=== PATIENT | female | born 1940 | race Caucasian/White ===

== ENCOUNTER → 2022-11-04 09:58 | Outpatient (REF) | payer MEDICARE, SELFPAY ==
--- NOTE | 2022-11-04 10:02 | CA_ITS ---
Transthoracic Echocardiogram Patient (Last, First, Middle): Eliza Guevara, Gender: Female Date of : 1940 Age: 81 Procedure Date: 11/04/2022 Procedure Type: Transthoracic Echocardiogram Location: [facility] Height: 165.1 cm Weight: 58.97 kg BSA: 1.65 m2 Heart Rate: bpm BP: 148 / 88 mmHg Expanding Machine Operator: MARISOL Referring MD: Ivis Carney MD Symptoms: Shortness of breath Study Quality: Adequate ECG Rhythm: Sinus Conclusions: - The left ventricular systolic function is normal. The visually estimated ejection fraction is between 65-70%. - There is mild aortic valve regurgitation. - There is mild mitral annular calcification. Findings Left Ventricle Normal left ventricular cavity size. There is normal left ventricular wall thickness. The left ventricular systolic function is normal. The visually estimated ejection fraction is between 65-70%. There is no evidence of regional wall motion abnormalities. Evidence suggests grade I (mild) diastolic dysfunction. LV peak GLS -16%. Right Ventricle Normal right ventricular cavity size and systolic function. Atria Both atria are normal in size. Aortic Valve There is a normal trileaflet aortic valve. There is no aortic valve stenosis. There is mild aortic valve regurgitation. Mitral Valve The mitral valve appears normal. There is mild mitral annular calcification. There is trace mitral valve regurgitation. There is no mitral valve stenosis. Pulmonic Valve The pulmonic valve is likely normal. Tricuspid Valve There is mild tricuspid valve regurgitation. There is no evidence of pulmonary hypertension. Great Vessels The asc aorta is normal in size. Venous The inferior vena cava is normal in size and collapses greater than 50% with inspiration. Pericardium/Pleural There is no evidence of pericardial effusion. Prior Study Comparison No significant change compared to prior study dated: 07/09/2014. Measurements 2D Linear Measurements IVSd: 0.78 0.6-0.9/0.6-1.0 cm LVIDd: 3.68 3.9-5.3/4.2-5.9 cm LVIDd Index: 2.23 2.4-3.2/2.2-3.1 cm/m2 LVIDs: 2.59 2.0-3.6 cm LVPWd: 0.93 0.7-1.1 cm LA Diam: 3.10 2.7-3.8/3.0-4.0 cm LAIDs Index: 1.88 1.5-2.3 cm/m2 LV Mass: 111.39 67-162/88-224 g LV Mass Index: 67.51 43-95/49-115 g/m2 LVOT Diam: 1.90 3.0+(-)1.3 cm 2D Systolic Function EF 4C: 57.70 >55% Mitral Valve MV Pk E: 0.59 MV PK A: 1.23 MV Decel Time: 285.00 E/A: 0.50 E'Lateral: 4.13 E'Medial: 3.05 E/E' Med: 19.40 E/E' Lat: 14.30 PHT: 83.00 MVA PHT: 2.65 Decel [place]: 2.08 Aortic Valve AoV Pk Luis Fernando: 1.25 AoV Mn Luis Fernando: 0.82 AoV VTI: 0.28 AoV Pk Grad: 6.00 Aov Mn Grad: 3.00 DIANA Cont.VTI: 2.46 AI Pk Luis Fernando: 3.22 AI VTI: 1.28 AI [place]: 2.46 AI Alias Luis Fernando: 0.39 AI RV - PISA: 24.00 ERO - PISA: 19.00 LVOT LVOT Pk Luis Fernando: 1.12 LVOT Mn Luis Fernando: 0.74 LVOT VTI: 0.24 LVOT Pk Grad: 5.00 LVOT Mn Grad: 3.00 LVOT Diam: 1.90 LVOT Area: 2.84 Diastolic Function MV Pk E: 0.59 MV Pk A: 1.23 E/A: 0.50 E'Medial: 3.05 E/E' Med: 19.40 E' Laterial: 4.13 E/E' Lat: 14.30 Right Ventricle TAPSE (mm): 25.60 TVS' Luis Fernando: 11.90 Tricuspid Valve TR Pk Luis Fernando: 2.20 TR Pk Grad: 19.00 RA Press: 3.00 RVSP: 22.00 Great Vessels Aorta Ao Asc: 3.40 2.1-3.4 cm Updated in Other Vendor System with Status of Final Elan Ellis MD electronically signed on 11/06/2022 11:20:53 AM with status of Final
== END ==
LOC: HO.CARD 09:58
PROVIDERS: PCP Internal Medicine; Visit Provider Internal Medicine
DX: R06.02 Shortness of breath (principal)
CPT/HCPCS: 93306; 93356